=== PATIENT | female | born 1990 | race Caucasian/White ===

== ENCOUNTER 2019-04-11 06:25 | Day surgery (SDC) | payer OTHER ==
[2019-04-04 14:36] VITALS: BMI 35.4
--- NOTE | 2019-04-08 04:48 | P.HPOB ---
History of Present Illness H&P Date: 04/08/19 Chief Complaint: Family planning Patient is a 29-year-old female who has completed her family planning and desires permanent sterilization. Risks/benefits/alternatives to laps scopic tubal occlusion with the scopes has been explained to the patient in detail and all questions were answered for her prior to proceeding to the operating room. Pertinent past medical history is on unremarkable. Past surgical history tonsillectomy. Past Medical History Past Medical History: Asthma History of Any Multi-Drug Resistant Organisms: None Reported Past Surgical History: Ear Surgery, Tonsillectomy Additional Past Surgical History / Comment(s): Scar tissue on ear removed. Past Anesthesia/Blood Transfusion Reactions: No Reported Reaction Past Psychological History: No Psychological Hx Reported Smoking Status: Never smoker Past Alcohol Use History: None Reported Past Drug Use History: None Reported - Past Family History Mother Family Medical History: Cancer Additional Family Medical History / Comment(s): Ovarian cancer X2. Medications and Allergies Home Medications Medication Instructions Recorded Confirmed Type Albuterol Inhaler [Ventolin Hfa 1 - 2 puff INHALATION RT-Q6H PRN 04/04/19 04/04/19 History Inhaler] Allergies Allergy/AdvReac Type Severity Reaction Status Date / Time Sulfa (Sulfonamide Allergy Itching Verified 04/04/19 14:36 Antibiotics) Exam Osteopathic Statement: *. No significant issues noted on an osteopathic structural exam other than those noted in the History and Physical/Consult. - OBG Physical Exam Breast: both: normal (no masses) Abdomen: bowel sounds normal, no diffuse tenderness, no bruit present, no guarding noted, no hepatomegaly, no splenomegaly, no mass Vulva: both: normal Vagina: normal moisture, no discharge Cervix: no lesion, no discharge Uterus: normal size, normal contour Adnexa: both: normal Anus/Rectum: normal perianal skin, no rectal mass, no hemorrhoids, heme negative
[~2019-04-11 06:25] MED LIST: DEXAMETHASONE SOD PHOSPHATE 10 MG/ML 1 ML VIAL IV ONE; HYDROmorphone 0.5 MG/0.5 ML SYRINGE IVP PRN; LACTATED RINGERS 1,000 ML IV SCH; MIDAZOLAM 2 MG/2 ML VIAL IV PRN; ONDANSETRON 4 MG/2 ML VIAL IVP ONE; Pre Op ABX Message 1 EACH MISC MISCELLANE ONE; SCOPOLAMINE 1.5MG/72HR PATCH TRANSDERM ONE
[2019-04-11 07:08] VITALS: RESP 16
[2019-04-11] MEDS ORDERED: LIDOCAINE 1% 20 ML VIAL (10MG/ML) FOR IV START INTRADERMA ONE (07:08)
[2019-04-11] MEDS ORDERED: PROPOFOL 10 MG/ML 20 ML VIAL IV ONE (07:30)
[2019-04-11] MEDS ORDERED: SUCCINYLCHOLINE CHLORIDE 100 MG/5 ML SYR IV ONE (07:30)
[2019-04-11] MEDS ORDERED: NEOSTIGMINE 1 MG/ML 10 ML VIAL ONE (07:30)
[2019-04-11] MEDS ORDERED: MIDAZOLAM 2 MG/2 ML VIAL ONE (07:30)
[2019-04-11] MEDS ORDERED: KETOROLAC 30 MG/ML 1 ML VIAL ONE (07:30)
[2019-04-11] MEDS ORDERED: ROCURONIUM BROMIDE 10 MG/ML 10 ML VIAL IV ONE (07:30)
[2019-04-11] MEDS ORDERED: GLYCOPYRROLATE 0.2 MG/ML 2 ML VIAL ONE (07:30)
[2019-04-11] MEDS ORDERED: LIDOCAINE 1% INJ 10MG/ML (20 ML MDV) ONE (07:30)
[2019-04-11] MEDS ORDERED: fentaNYL (PF) 50 MCG/ML 2 ML AMP ONE (07:30)
[2019-04-11] MEDS ORDERED: HYDROmorphone (PF) 1 MG/ML ONE (07:30)
[2019-04-11] MEDS ORDERED: BUPIVACAINE (PF) 0.5% 30 ML VIAL SQ ONE ×3 (07:48→07:58)
--- NOTE | 2019-04-11 08:06 | P.OP ---
Date of Procedure: 04/11/19 Preoperative Diagnosis: Family planning Postoperative Diagnosis: Same Procedure(s) Performed: Laparoscopic tubal occlusion with Filshie clips Anesthesia: FRANCISCO Surgeon: Ranjit Joyner Estimated Blood Loss (ml): 2 IV fluids (ml): 400 Urine output (ml): 20 Pathology: none sent Condition: stable Disposition: same day Operative Findings: Normal female pelvic anatomy. Questionable stage I endometriosis Description of Procedure: Patient was taken to the operating suite where a general anesthetic was found be adequate. She was prepped and draped in normal sterile fashion and placed in dorsal lithotomy position. Initially a speculum was inserted into the vagina and into lip of the cervix was identified and grasped with single-tooth tenaculum. Uterus was then sounded to 9 cm and a uterine manipulator was inserted without difficulty. Once this was accomplished red rubber catheter was used to drain the bladder of urine and this was then removed as well as the other vaginal instruments other than the manipulator. Gloves were then changed and attention was turned to abdominal portion procedure were 2 mL of half percent Marcaine were injected periumbilically. Through this injected anesthetic a 5 mm skin incision was made and through this incision under direct visualization with an optical trocar and sleeve the camera was inserted. Once peritoneal placement was assured gas was allowed to fully insufflate the abdomen and patient's placement steep Trendelenburg position. A second 8 mm skin incision was then made 3 cm above the pubic symphysis in the midline and through this incision again under direct visualization an 8 trocar and sleeve were inserted. Once accomplished uterus was elevated and observations pelvis were noted. Small questionable stage I endometriosis along the right pelvic sidewall but very close in proximity to the ureter. Incidental finding. Once this was completed Filshie clip was applied 2-3 cm from uterine cornu on the right side and then the left side and no bleeding is noted in the mesosalpinx. Once this was accomplished instruments were removed and gas allowed to expel from the abdomen. 5 deep breaths were provided during this process. Trochars were then removed and 4-0 Vicryl was used to close incision subcuticularly. Another 5 mL of local anesthetic was then injected around the incisions. Instruments removed vagina. Sponge, lap, needle counts were all correct 2. Patient was then taken to the recovery room in stable and satisfactory condition. Plan - Discharge Summary Discharge Rx Participant: Yes New Discharge Prescriptions: New Ibuprofen [Motrin] 600 mg PO Q6HR PRN #30 tab PRN Reason: Pain Acetaminophen-Codeine 300-30mg [Tylenol #3] 1 tab PO Q4H PRN #30 tablet PRN Reason: Pain No Action Albuterol Inhaler [Ventolin Hfa Inhaler] 1 - 2 puff INHALATION RT-Q6H PRN PRN Reason: Dyspnea Discharge Medication List Albuterol Inhaler [Ventolin Hfa Inhaler] 1 - 2 puff INHALATION RT-Q6H PRN 04/04/19 [History] Acetaminophen-Codeine 300-30mg [Tylenol #3] 1 tab PO Q4H PRN #30 tablet 04/11/19 [Rx] Ibuprofen [Motrin] 600 mg PO Q6HR PRN #30 tab 04/11/19 [Rx] Follow up Appointment(s)/Referral(s): Ranjit Joyner DO [Doctor of Osteopathic Medicine] - 2 Weeks Activity/Diet/Wound Care/Special Instructions: No heavy lifting, tears driving, and pelvic rest. If any high temperatures, heavy bleeding, or severe pain call my office Discharge Disposition: HOME SELF-CARE
[2019-04-11] MEDS ORDERED: diphenhydrAMINE 50 MG/ML 1 ML VIAL IVP ONE (08:20)
[2019-04-11 08:22] VITALS: TEMP 97
[2019-04-11] MEDS ORDERED: LACTATED RINGERS 1,000 ML IV ONE (09:07)
[2019-04-11 09:42] VITALS: PULSE 59
[2019-04-11 10:08] VITALS: BP 132/89
== END 2019-04-11 10:45 | disposition home or self-care (01) ==
LOC: OR 06:25
PROVIDERS: ATTEND Obstetrics & Gynecology
DX: Z30.2 Encounter for sterilization (principal); J45.909 Unspecified asthma, uncomplicated; Z88.2 Allergy status to sulfonamides; Z80.41 Family history of malignant neoplasm of ovary
CPT/HCPCS: 58671; 81025; J2250; J1200; J1100; J2710; J2001; J2405; J3010; J1885; J1170 ×2; J0330; J2704

== ENCOUNTER → 2019-06-22 | Outpatient (CLI) | payer OTHER | END | disposition home or self-care (01) | LOC: LABWHC1 11:36 | PROVIDERS: ATTEND Allergy & Immunology | DX: T78.1XXA Other adverse food reactions, not elsewhere classified, initial encounter (principal) | CPT/HCPCS: 36415; 86003 ==

== ENCOUNTER 2020-01-30 21:31 | Emergency (ER) | payer OTHER ==
[2020-01-30 21:37] VITALS: BP 123/85; PULSE 90; RESP 18; TEMP 98.2
[2020-01-30] MEDS ORDERED: TOPICAL SKIN ADHESIVE 1 EACH AMP TOPICAL ONE (22:07)
--- NOTE | 2020-01-30 22:10 | ED ---
Wound/Laceration HPI - General Chief Complaint: Wound/Laceration Stated Complaint: L Finger Cut Time Seen by Provider: 01/30/20 21:43 Source: patient, RN notes reviewed, old records reviewed Mode of arrival: ambulatory Limitations: no limitations - History of Present Illness Initial Comments: Patient presents to emergency department today with chief complaint of a laceration over her left pointer finger over the tip of the pad of the finger. Patient reports that she was cleaning and cut it on something sharp that was on a countertop. Patient states that she cannot get the bleeding controlled to 2 hours at home. Upon arriving to emergency department the bleeding is controlled this time but will still open if she bends her finger. Patient states that she is up-to-date on vaccines including her tetanus. - Related Data Home Medications Medication Instructions Recorded Confirmed Albuterol Inhaler (Bulk) [Ventolin 1 - 2 puff INHALATION RT-Q6H PRN 04/04/19 01/30/20 Hfa Inhaler] Allergies Allergy/AdvReac Type Severity Reaction Status Date / Time Sulfa (Sulfonamide Allergy Itching Verified 01/30/20 21:37 Antibiotics) Review of Systems ROS Statement: Those systems with pertinent positive or pertinent negative responses have been documented in the HPI. ROS Other: All systems not noted in ROS Statement are negative. Past Medical History Past Medical History: Asthma History of Any Multi-Drug Resistant Organisms: None Reported Past Surgical History: Tonsillectomy, Tubal Ligation Past Psychological History: No Psychological Hx Reported Smoking Status: Never smoker Past Alcohol Use History: Occasional Past Drug Use History: None Reported General Exam - General Exam Comments Initial Comments: 29 year old female, no distress. Limitations: no limitations General appearance: alert Head exam: Present: atraumatic, normocephalic, normal inspection Eye exam: Present: normal appearance, PERRL, EOMI. Absent: scleral icterus, conjunctival injection, periorbital swelling ENT exam: Present: normal exam, mucous membranes moist Neck exam: Present: normal inspection. Absent: tenderness, meningismus, lymphadenopathy Respiratory exam: Present: normal lung sounds bilaterally. Absent: respiratory distress, wheezes, rales, rhonchi, stridor Cardiovascular Exam: Present: regular rate, normal rhythm, normal heart sounds. Absent: systolic murmur, diastolic murmur, rubs, gallop, clicks GI/Abdominal exam: Present: soft, normal bowel sounds. Absent: distended, tenderness, guarding, rebound, rigid Extremities exam: Present: normal inspection, full ROM, normal capillary refill. Absent: tenderness, pedal edema, joint swelling, calf tenderness Left Upper Arm exam: Present: normal inspection, full ROM Elbow exam: Present: normal inspection, full ROM Forearm Wrist exam: Present: normal inspection, full ROM Hand Wrist exam: Present: normal inspection, full ROM, laceration (1cm laceration over pointer finger, bleeding controlled ) Neuro motor exam: Present: wrist extension intact, thumb opposition intact, thumb IP flexion intact, thumb adduction intact, fingers 2-5 abduction intact Vascular: Present: normal capillary refill Back exam: Present: normal inspection, full ROM Neurological exam: Present: alert, oriented X3, CN II-XII intact Psychiatric exam: Present: normal affect, normal mood Skin exam: Present: warm, dry, intact, normal color. Absent: rash Course Vital Signs 01/30/20 21:33 Temperature 98.2 F Pulse Rate 90 Respiratory 18 Rate Blood Pressure 123/85 O2 Sat by Pulse 98 Oximetry Procedures - Laceration Laceration #1 Site: hand (L pointer ) Description: linear Depth: simple, single layer Anesthetic Used: lidocaine 1% Anesthesia Technique: local infiltration Pre-repair: wound explored, irrigated extensively Type of Sutures: other (dermabond) Technique: other (dermabond ) Complications: pain Patient Tolerated Procedure: well, no complications Medical Decision Making - Medical Decision Making 29 year old female with superficial finger laceration over L pointer finger. Bleeding is well-controlled. The laceration was closed with Dermabond. Patient tolerated the procedure well. Discussed monitoring for an infection and redness swelling or drainage. Patient understands treatment plan will comply. Disposition Clinical Impression: Finger laceration Disposition: HOME SELF-CARE Condition: Good Instructions (If sedation given, give patient instructions): Finger Laceration (ED) Additional Instructions: Patient is follow-up with primary care physician. Allow the skin glue to follow up on its own. Monitor for any signs of infection including redness swelling or drainage. Return to the ED if any alarming signs or symptoms occur. Is patient prescribed a controlled substance at d/c from ED?: No Referrals: Leslie Shah MD [Primary Care Provider] - 1-2 days Time of Disposition: 22:09
== END 2020-01-30 22:38 | disposition home or self-care (01) ==
LOC: EC 21:31
DX: S61.211A Laceration without foreign body of left index finger without damage to nail, initial encounter (principal); J45.909 Unspecified asthma, uncomplicated; Z88.2 Allergy status to sulfonamides; W45.8XXA Other foreign body or object entering through skin, initial encounter
CPT/HCPCS: 12001; 99283